=== PATIENT | male | born 1965 | race Caucasian/White ===

== ENCOUNTER 2018-03-01 10:53 | Emergency (ER) | payer MEDICARE, OTHER ==
[~2018-03-01] VITALS: Ht 182.9 cm; Wt 88.9 kg
[~2018-03-01 10:53] MED LIST: FER-IRON15 MG/1 ML PO; FOLIC ACID1 MG PO; LACTULOSE10 GM/15 M PEG; LASIX40 MG; ONDANSETRON ODT8 MG PO; PANTOPRAZOLE SO20 MG PO; SPIRONOLACTONE50 MG PO; XIFAXAN550 MG PO; [UNRECOGNIZED DRUG - REMARK]
[2018-03-01] MEDS ORDERED: SODIUM CHLORIDE 0.9% 1000ML 1,000 ML IV STA (10:56)
[2018-03-01 11:08] LABS: BASOPHILS % 0.9 % (0.0-1.0); EOSINOPHILS # (AUTO) 0.3 (0.0-0.4); EOSINOPHILS % 5.4 % (0.0-6.0); HEMATOCRIT 45.3 % (38.2-49.6); HEMOGLOBIN 15.8 g/dL (14.0-18.0); LYMPHOCYTES # (AUTO) 1.8 (1.0-3.2); LYMPHOCYTES % 39.4 % (18.0-39.1); MEAN CORPUSCULAR HEMOGLOBIN 34.1 pg (28-32); MEAN CORPUSCULAR HGB CONC 34.9 g/dL (31-35); MEAN CORPUSCULAR VOLUME 97.6 fL (81-99); MONOCYTES # (AUTO) 0.4 (0.2-0.8); MONOCYTES % 8.9 % (4.4-11.3); NEUTROPHILS # (AUTO) 2.1 (2.1-6.9); NEUTROPHILS % 45.2 % (38.7-80.0); RED BLOOD COUNT 4.64 x10e6/uL (4.3-5.7); RED CELL DISTRIBUTION WIDTH 15.7 % (11.7-14.4)
[2018-03-01 11:19] LABS: PLATELET COUNT 41 x10e3/uL (140-360)
[2018-03-01 11:21] LABS: INR 1.34; PROTHROMBIN TIME 17.7 seconds (11.9-14.5)
[2018-03-01 11:32] LABS: ALANINE AMINOTRANSFERASE 75 IU/L (0-55); ALBUMIN 2.4 g/dL (3.5-5.0); ALBUMIN/GLOBULIN RATIO 0.5 (0.8-2.0); ALKALINE PHOSPHATASE 98 IU/L (40-150); ANION GAP 10.6 mmol/L (8-16); BLOOD UREA NITROGEN < 5 mg/dL (7-26); CALCIUM 8.4 mg/dL (8.4-10.2); CARBON DIOXIDE 24 mmol/L (22-29); CHLORIDE 110 mmol/L (98-107); CREATINE KINASE 144 IU/L (30-200); CREATININE, SERUM 0.76 mg/dL (0.72-1.25); EST GLOMERULAR FILTRATION RATE > 60 ML/MIN (60-); GLUCOSE 116 mg/dL (74-118); LIPASE 104 U/L (8-78); MAGNESIUM 1.8 MG/DL (1.3-2.1); POTASSIUM 3.6 mmol/L (3.5-5.1); SODIUM 141 mmol/L (136-145)
[2018-03-01] MEDS ORDERED: FAMOTIDINE 20 MG/2 ML VIAL IV ONE (11:35)
[2018-03-01] MEDS ORDERED: ONDANSETRON HCL INJ 2 MG/ML VIAL IV ONE (11:35)
[2018-03-01 11:37] LABS: BUN/CREATININE RATIO 7 (6-25)
--- NOTE | 2018-03-01 11:43 | Diagnostic Imaging Report ---
History: Fall, possible seizure Comparison studies:CT head 01/13/2014 Technique: Axial images were obtained from the brain and cervical spine. Coronal and sagittal images reconstructed from the axial data. Intravenous contrast: None Dose modulation, iterative reconstruction, and/or weight based adjustment of the mA/kV was utilized to reduce the radiation dose to as low as reasonably achievable. Findings: Head CT: Scalp/skull: No abnormalities. No fractures, blastic or lytic lesions. Brain sulci: Mild cerebellar volume loss, stable. Ventricles: Normal in size and configuration. No hydrocephalus. Extra-axial spaces: No masses. No fluid collections. Parenchyma: No abnormal densities. No masses, hemorrhage, acute or chronic cortical vascular insults. Sellar/suprasellar region: No abnormalities. Craniocervical junction: Patent foramen magnum. No Chiari one malformation. Cervical spine CT: Fractures: None. Soft tissues: No gross abnormalities. Atlantoaxial articulation: Degenerative changes without acute abnormality. Alignment: Normal lordosis. No scoliosis. Cervicomedullary junction: No abnormalities. Patent foramen magnum. Vertebrae: No infection or neoplasm. Degenerative changes: Is degeneration with intervertebral space at C4-C5. Inferior C4 endplate Schmorl node. At C4-5 posterior disc osteophyte complex results in mild canal stenosis. Mild uncinate process hypertrophy and left facet hypertrophy at the mid cervical spine without significant canal stenosis or foraminal narrowing. Incidental findings: None. Impression: Head CT: 1. No acute intracranial abnormality. Cervical spine CT: 1. No acute abnormalities. 2. Cannot exclude ligament, spinal cord and or vascular abnormalities on the basis of this examination. Signed by: DR Karson Gil M.D. on 03/01/2018 11:40 AM
[2018-03-01] MEDS ORDERED: FOSPHENYTOIN 1,000 MG in SODIUM CHLORIDE 0.9% 50ML 50 ML IV ONE (11:45)
[2018-03-01 11:51] LABS: THYROID STIMULATING HORMONE 1.714 uIU/mL (0.350-4.940)
[2018-03-01 11:57] LABS: ACETAMINOPHEN < 3 ug/mL (10-30); SALICYLATE < 5.0 mg/dL (0-30)
[2018-03-01 12:01] LABS: PLATELET ESTIMATE MARKEDLY DECREASED; PLATELET MORPHOLOGY COMMENT NORMAL; RBC MORPHOLOGY COMMENT NORMAL
[2018-03-01] MEDS ORDERED: MULTIVITAMINS- 12 INJECTION 10 ML, FOLIC ACID MDV 5 MG, THIAMINE HCL INJ 100 MG in SODI... IV ONE (12:15)
[2018-03-01 12:23] LABS: CLARITY,URINE CLEAR (CLEAR); COLOR,URINE YELLOW (YELLOW); KETONES,URINE NEGATIVE (NEGATIVE); LEUKOCYTE ESTERASE ,URINE NEGATIVE (NEGATIVE); NITRITE,URINE NEGATIVE (NEGATIVE); PROTEIN,URINE DIPSTICK NEGATIVE (NEGATIVE)
[2018-03-01 12:24] LABS: AMPHETAMINES SCREEN,URINE NEGATIVE (NEGATIVE); BENZODIAZEPINES SCREEN,URINE POSITIVE (NEGATIVE); PHENCYCLIDINE SCREEN,URINE NEGATIVE (NEGATIVE)
[2018-03-01 12:25] LABS: BILIRUBIN,URINE NEGATIVE (NEGATIVE); URINE UROBILINOGEN 0.2 mg/dL (0.2 - 1)
[2018-03-01] MEDS ORDERED: TRAMADOL HCL 50 MG TAB PO ONE (12:30)
[2018-03-01 12:32] LABS: EPITHELIAL CELLS,URINE RARE /LPF; WBC,URINE (MAN) 0-5 /HPF (0-5)
[2018-03-01 12:33] LABS: BACTERIA,URINE FEW /HPF
--- NOTE | 2018-03-01 13:27 | Diagnostic Imaging Report ---
History:Fall, rule out fracture Comparison studies: None Technique: Axial images were obtained through the maxillofacial region. Coronal and sagittal images reconstructed from the axial data. Intravenous contrast: None Dose modulation, iterative reconstruction, and/or weight based adjustment of the mA/kV was utilized to reduce the radiation dose to as low as reasonably achievable. Findings: Soft tissues: No abnormalities. Bones: No acute fractures. Wiring at the left mandibular ramus and right mandibular body anterior aspect, likely from previous intervention. Orbits: Globes: Intact Extra or intraconal abnormalities: None. Paranasal sinuses: Clear Periapical lucencies, missing dentition and dental cavities, better assessed clinically, the largest periapical lucency is located at dentition #7 and 8, relates to periapical abscess. IMPRESSION: 1. No acute abnormality. 2. Poor dentition, better assessed clinically. Signed by: DR Karson Gil M.D. on 03/01/2018 1:24 PM
[2018-03-01] MEDS ORDERED: ENALAPRILAT IV INJ 1.25 MG/ML VIAL IV PRN (13:30)
[2018-03-01] MEDS ORDERED: DIPHENHYDRAMINE HCL INJ 50 MG/ML VIAL IV PRN (13:30)
[2018-03-01] MEDS ORDERED: PROMETHAZINE HCL 25 MG TAB PO PRN (13:30)
[2018-03-01] MEDS ORDERED: ONDANSETRON HCL INJ 2 MG/ML VIAL IV PRN ×2 (13:30→14:15)
[2018-03-01] MEDS ORDERED: KETOROLAC TROMETHAMINE 30 MG/ML VIAL IV PRN (14:00)
--- NOTE | 2018-03-01 14:09 | Diagnostic Imaging Report ---
Examination: Single AP view of the chest. COMPARISON: None. INDICATION: Status post fall IMPRESSION: 1. Lines and Tubes: None 2. Lungs are grossly clear. No consolidation or effusion. 3. Cardiomediastinal silhouette is normal. Pulmonary vasculature is normal. 4. No acute bony abnormalities. Signed by: Dr. Kuldeep Hall M.D. on 03/01/2018 2:06 PM
--- OUTSIDE RECORDS SUMMARY | 2018-03-01 14:18 | XMS REPORT ---
Author [facility] Address Unknown Phone Unavailable Care Team Providers Care Marketing Engineer Name Role Phone LEW ANTUNEZ Unavailable Unavailable Problems This patient has no known problems. Allergies, Adverse Reactions, Alerts This patient has no known allergies or adverse reactions. Medications This patient has no known medications. Results Test Description Test Time Test Comments Text Results Atomic Results Result Comments CHEST SINGLE (PORTABLE) 2018-03-01 14:06:00 [place] [id number] Patient Name: ULISSES JUNIOR MR #: [id number] : 1965 Age/Sex: 52/M Req #: [id number] Adm Physician: Ordered by: ASHLYN HERRON CHEF TEACHER Report #: [id number] Location: ER Room/Bed: Procedure: [id number] DX/CHEST SINGLE (PORTABLE) Exam Date: 03/01/18 Exam Time: 1110 REPORT STATUS: Signed Examination: Single AP view of the chest. COMP ARISON: None. INDICATION: Status post fall IMPRESSION: 1. Lines and Tubes: None 2. Lungs are grossly clear. No consolidation or effusion. 3. Cardiomediastinal silhouette is normal. Pulmonary vasculature is normal. 4. No acute bony abnormalities. Signed by: Dr. Gus Hall M.D. on 03/01/2018 2:06 PM Dictated By: GUS HALL MD 05 Transcribed By: HARSH on 03/01/181405 COPY TO: ASHLYN HERRON NP CT MAXIO FAC/PARANAS WO 2018-03-01 13:18:00 [place] [id number] Patient Name: ULISSES JUNIOR MR #: [id number] : 1965 Age/Sex: 52/M Req #: [id number] Adm Physician: Ordered by: ASHLYN HERRON NP Report #: [id number] Location: ER Room/Bed: Procedure: [id number] CT/CT MAXIO FAC/PARANAS WO Exam Date: Exam Time: REPORT STATUS: Signed History:Fall, rule out fracture Comparison studies: None Technique: Axial images were obtained through the maxillofacial region. Coronal and sagittal images reconstructed from the axial data. Intravenous contrast: None Dose modulation, iterative reconstruction, and/or weight based adjustment of the mA/kV was utilized to reduce the radiation dose to as low as reasonably achievable. Findings: Soft tissues: No abnormalities. Bones: No acute fractures. Wiring at the left mandibular ramus and right mandibular body anterior aspect, likely from previous intervention. Orbits: Globes: Intact Extra or intraconal abno rmalities: None. Paranasal sinuses: Clear Periapical lucencies, missing dentition and dental cavities, better assessed clinically, the largest periapical lucency is located at dentition #7 and 8, relates to periapical abscess. IMPRESSION: 1. No acute abnormality. 2. Poor dentition, better assessed clinically. Signed by: DR Karson Gil M.D. on 03/01/2018 1:24 PM Dictated By: KARSON MURRAY MD 1324 Transcribed By: HARSH on 03/01/18 1324 COPY TO: ASHLYN HERRON NP CT CERVICAL SPINE WO 2018-03-01 11:30:00 [place] [id number] Patient Name: ULISSES JUNIOR MR #: [id number] : 1965 Age/Sex: 52/M Req #: [id number] Adm Physician: Ordered by: ASHLYN HERRON NP Report #: [id number] Location: ER Room/Bed: Procedure: [id number] CT/CT CERVICAL SPINE WO Exam Date: 03/01/18 Exam Time: 1110 REPORT STATUS: Signed History: Fall, possible seizure Comparison studies:CT head 01/13/2014 Technique: Axial images were obtained from the brain and cervical spine. Coronal and sagittal images reconstructed from the axial data. Intravenous contrast: None Dose modulation, iterative reconstruction, and/or weight based adjustment of the mA/kV was utilized to reduce the radiation dose to as low as reasonably achievable. Findings: Head CT: Scalp/sk ull: No abnormalities. No fractures, blastic or lytic lesions. Brain sulci: Mild cerebellar volume loss, stable. Ventricles: Normal in size and configuration. No hydrocephalus. Extra-axial spaces: No masses. No fluid collections. Parenchyma: No abnormal densities. No masses, hemorrhage, acute or chronic cortical vascular insults. Sellar/suprasellar region: No abnormalities. Craniocervical junction: Patent foramen magnum. No Chiari one malformation. Cervical spine CT: Fractures: None. Soft tissues: No gross abnormalities. Atlantoaxial articulation: Degenerative changes without acute abnormality. Alignment: Normal lordosis. No scoliosis. Cervicomedullary junction: No abnormalities. Patent foramen magnum. Vertebrae: No infection or neoplasm. Degenerative changes: Is degeneration with intervertebral space at C4-C5. Inferior C4 endplate Schmorl node. At C4-5 posterior disc osteophyte complex results in mild canal stenosi s. Mild uncinate process hypertrophy and left facet hypertrophy at the mid cervical spine without significant canal stenosis or foraminal narrowing. Incidental findings: None. Impression: Head CT: 1. No acute intracranial abnormality. Cervical spine CT: 1. No acute abnormalities. 2. Cannot exclude ligament, spinal cord and or vascular abnormalities on the basis of this examination. Signed by: DR Karson Gil M.D. on 03/01/2018 11:40 AM Dictated By: KARSON MURRAY MD 1140 Transcribed By: HARSH on 03/01/18 1140 COPY TO: ASHLYN HERRON NP CT BRAIN WO 2018-03-01 11:30:00 [place] [id number] Patient Name: ULISSES JUNIOR MR #: [id number] : 1965 Age/Sex: 52/M Req #: [id number] Adm Physician: Ordered by: ASHLYN HERRON CHEF TEACHER Report #: [id number] Location: ER Room/Bed: Procedure: [id number] CT/CT BRAIN WO Exam Date: 03/01/18 Exam Time: 1110 REPORT STATUS: Signed History: Fall, possible seizure Comparison studies:CT head 01/13/2014 Technique: Axial images were obtained from the brain and cervical spine. Coronal and sagittal images reconstructed from the axial data. Intravenous contrast: None Dose modulation, iterative reconstruction, and/or weight based adjustment of the mA/kV was utilized to reduce the radiation dose to as low as reasonably achievable. Findings: Head CT: Scalp/skull: No abnormalities. No fractures, blastic or lytic lesions. Brain sulci: Mild cerebellar volume loss, stable. Ventricles: Normal in size and configuration. No hydrocephalus. Extra-axial spaces: No masses. No fluid collections. Parenchyma: No abnormal densities. No masses, hemorrhage, acute or chronic cortical vascular insults. Sellar/suprasellar region: No abnormalities. Craniocervical junction: Patent foramen magnum. No Chiari one malformation. Cervical spine CT: Fractures: None. Soft tissues: No gross abnormalities. Atlantoaxial articulation: Degenerative changes without acute abnormality. Alignment: Normal lordosis. No scoliosis. Cervicomedullary junction: No abnormalities. Patent foramen magnum. Vertebrae: No infection or neoplasm. Degenerative changes: Is degeneration with intervertebral space at C4-C5. Inferior C4 endplate Schmorl node. At C4-5 posterior disc osteophyte complex results in mild canal stenosis. Mild uncinate process hypertrophy and left facet hypertrophy at the mid cervical spine without significant canal stenosis or foraminal narrowing. Incidental findings: None. Impression: Head CT: 1. No acute intracranial abnormality. Cervical spine CT: 1. No acute abnormalities. 2. Cannot exclude ligament, spinal cord and or vascular abnormalities on the basis of this examination. Signed by: DR Karson Gil M.D. on 03/01/2018 11:40 AM Dictated By: KARSON MURRAY MD 1149 Transcribed By: HARSH on 03/01/18 1140 COPY TO: ASHLYN HERRON NP
--- OUTSIDE RECORDS SUMMARY | 2018-03-01 14:18 | XMS REPORT | Clinical Summary ---
Author Author [facility] Address Unknown Phone Unavailable Care Team Providers Care Associate Professor Of Art Name Role Phone Kuldeep Hunter PCP Allergies Comments Active Allergy Reactions Severity Noted Date Combative - Severe - Per Halls history Lorazepam Nausea And 06/16/2013 Vomiting Does not work Morphine Other (See Medium 01/15/2014 Comments) Ketorolac Nausea And 06/10/2014 Vomiting Medications End Date Status Medication Sig Dispensed Refills Start Date Active XIFAXAN 550 mg Tab TAKE ONE 60 tablet 5 TABLET BY 5 MOUTH TWICE A DAY Active XIFAXAN 550 mg Tab TAKE ONE 60 tablet 5 TABLET BY 6 MOUTH TWICE A DAY Active lactulose (CHRONULAC) 20 Take 30 mLs 2700 mL 11 gram/30 mL (20 g total) 6 solutionIndications: by mouth 3 Encephalopathy, portal (three) times systemic (HCC), Chronic daily. hepatitis C without hepatic coma (HCC), Hepatic encephalopathy (HCC) Active ondansetron (ZOFRAN) 4 MG TAKE ONE 30 tablet 0 tablet TABLET BY 8 MOUTH TWICE A DAY UP TO 7 DAYS NEEDED FOR NAUSEA. Active furosemide (LASIX) 20 MG TAKE ONE 60 tablet 4 tablet TABLET BY 8 MOUTH TWICE A DAY Active AMILoride (MIDAMOR) 5 MG TAKE ONE 60 tablet 4 tablet TABLET BY 8 MOUTH TWICE A DAY Active propranolol (INDERAL) 10 TAKE ONE 60 tablet 4 MG tablet TABLET BY 8 MOUTH TWICE A DAY Active pantoprazole (PROTONIX) TAKE ONE 30 tablet 2 40 MG tablet TABLET BY 8 MOUTH DAILY Active multivitamin per tablet Take 1 tablet 0 by mouth daily. Active Problems Problem Noted Date Cellulitis 06/10/2014 Chronic hepatitis C without hepatic coma 06/03/2014 History of alcohol use 06/03/2014 Fatigue 06/03/2014 Bone pain 06/03/2014 Iron deficiency anemia 06/03/2014 Abnormal breath sounds 06/03/2014 Hepatic encephalopathy 01/15/2014 Cellulitis and abscess of leg 01/15/2014 Nausea 09/16/2013 GI bleed 06/20/2013 S/P TIPS (transjugular intrahepatic portosystemic shunt) 05/17/2013 Cirrhosis 05/01/2013 Last Assessment & Plan: Compensated cirrhosis, diagnosed by constellation of symptoms/examination/labs/imaging/liver biopsy, secondary to alcohol. There is evidence of acute decompensation. This is complicated by portal hypertension manifested by GI bleed, encephalopathy and ascites. We will obtain labs to calculate the MELD score and stratify his risk for transplantation. Portal hypertension 05/01/2013 Last Assessment & Plan: Cirrhosis is complicated by portal hypertension manifested by gastric varices, ascites and encephalopathy. Gastric varices 05/01/2013 Last Assessment & Plan: Patient has gastric varices s/p 2 major GI bleeds. Now status post TIPS. We will evaluate the imaging for patency of TIPS. Ascites 05/01/2013 Last Assessment & Plan: Patient has mild ascites and currently on low dose diuretics. We recommend to continue 2000 mg sodium restricted diet and current dose of diuretics. The ascites will improve with patent TIPS. Screening for cancer 05/01/2013 Last Assessment & Plan: Cirrhosis, regardless of etiology, is a risk factor for hepatocellular carcinoma (HCC), with an annual incidence of 1.5-7%. We recommend surveillance for HCC with abdominal imaging and alphafetoprotein every 6 months. We will review the images from [facility] and if needed will get MRI for screening of HCC. Screening for endocrine/metabolic/immunity disorders 05/01/2013 Last Assessment & Plan: Serological tests will be completed to determine the presence of immunity to hepatitis A and B. If found susceptible she will be referred to her primary care provider to consider the administration of the appropriate vaccines. Encounters Care Team Description Date Type Specialty Sandy Neff MA 06/12/2017 Documentation Hepatology Caryn Peterson RN Other cirrhosis of liver (HCC) (Primary Dx) 05/05/2017 Orders Only Hepatology after 02/28/2017 Family History Medical History Relation Name Comments Asthma Daughter Arthritis Father Gout Father Diabetes Mother Relation Name Status Comments Daughter Alive Father Alive Mother Alive Social History Date Tobacco Use Types Packs/Day Years Used Current Every Day Smoker 1 15 Smokeless Tobacco: Never Used Tobacco Cessation: Counseling Given: Yes Comments: half pack to full pack a day Alcohol Use Drinks/Week oz/Week Comments No 10 Cans of 6.0 stopped drinking in 2012 beer Sex Assigned at Date Recorded Not on file Industry Job Start Date Occupation Not on file Not on file Not on file Travel End Travel History Travel Start No recent travel history available. Last Filed Vital Signs Not on file Plan of Treatment Health Maintenance Due Date Last Done Comments INFLUENZA VACCINE 01/08/2018 Results Not on fileafter 02/28/2017 Insurance Payer Benefit Subscriber ID Type Phone Address Plan / Group MEDICAID - MEDICAID [facility] xxxxxxxxx Medicaid CARE COMM STAR Contracted PLAN MEDICAID - MEDICAID [place] MEDICAID xxxxxxxxx Medicaid CARE WORTHY Non-Contra NONCONTRAC cted [place] Advance Directives For more information, please contact: [facility] [address] [place] [address] Date Inactivated Comments Code Status Date Activated 06/17/2014 2:46 PM Full Code 06/10/2014 4:43 AM This code status was determined by: Patient 06/10/2014 4:43 AM Full Code 06/10/2014 4:43 AM This code status was determined by: Patient 01/21/2014 7:06 PM Full Code 01/15/2014 12:30 AM This code status was determined by: Patient 06/24/2013 2:51 PM All possible means of support, including: cardiac massage, mechanical ventilation, and defibrillation will be used to support life. Code ONE 06/20/2013 3:13 PM
[2018-03-01] MEDS ORDERED: THIAMINE HCL INJ 100 MG/ML 2ML VIAL IV ONE (14:30)
[2018-03-01] MEDS ORDERED: RIFAXIMIN 550 MG TABLET PO SCH (17:00)
[2018-03-01] MEDS ORDERED: FAMOTIDINE 20 MG/2 ML VIAL IV SCH (17:00)
[2018-03-01] MEDS ORDERED: LACTULOSE SYRUP 20 GM/30 ML UDC PO SCH (17:00)
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
[2018-03-01] MEDS ORDERED: OXAZEPAM 10 MG CAP PO SCH (18:00)
[2018-03-02] MEDS ORDERED: SPIRONOLACTONE 25 MG TAB PO SCH (09:00)
[2018-03-02] MEDS ORDERED: FERROUS SULFATE 325 MG TAB PO SCH (09:00)
[2018-03-02] MEDS ORDERED: FOLIC ACID 1 MG TAB PO SCH (09:00)
[2018-03-02] MEDS ORDERED: MULTIVITAMINS/MINERALS TAB PO SCH (09:00)
== END 2018-03-01 15:01 | disposition left against medical advice (07) ==
LOC: ER 10:53 → UNDOADMOB 14:16 → ERHOLD 14:16
DX: R55 Syncope and collapse (principal); S06.0X9A Concussion with loss of consciousness of unspecified duration, initial encounter; S00.83XA Contusion of other part of head, initial encounter; F14.129 Cocaine abuse with intoxication, unspecified; F10.129 Alcohol abuse with intoxication, unspecified; F13.129 Sedative, hypnotic or anxiolytic abuse with intoxication, unspecified
CPT/HCPCS: 36415; 70450; 70486; 71045; 72125; 80053; 80307; 80320; 80329 ×2; 81001; 82140; 82550; 82553; 83690; 83735; 83880; 84443; 84484; 85025; 85610; 85730; 87086; 99284; J1885; J2405; J3411; J7030; Q2009